=== PATIENT | male | born 1985 | race Caucasian/White ===

== ENCOUNTER 2018-04-05 01:40 | Emergency (ER) | payer BC, SELFPAY ==
[2018-04-05] MEDS ORDERED: Lidocaine 4% Cream 5 GM TUBE w/ Tegaderm ONE (01:59)
[2018-04-05] MEDS ORDERED: Lidocaine 1% w/Epinephrine 1:100K 20 ML VIAL ONE (02:00)
[2018-04-05] MEDS ORDERED: Adacel (T-DAP) 0.5 ML VIAL ONE (02:07)
== END 2018-04-05 02:40 | disposition home or self-care (01) ==
LOC: ERS 01:40
DX: S01.511A Laceration without foreign body of lip, initial encounter (principal); I10 Essential (primary) hypertension; Y04.0XXA Assault by unarmed brawl or fight, initial encounter
CPT/HCPCS: 12011; 90471; 90715; J2001

== ENCOUNTER 2018-04-13 08:21 | Emergency (ER) | payer SELFPAY | END 2018-04-13 09:24 | disposition home or self-care (01) | LOC: ERS 08:21 | DX: S01.511D Laceration without foreign body of lip, subsequent encounter (principal); Y04.8XXD Assault by other bodily force, subsequent encounter ==